=== PATIENT | female | born 1965 | race Hispanic/Latino ===

== ENCOUNTER 2017-06-16 12:32 | Emergency (ER) | payer BC, MEDICAID, OTHER ==
[2017-06-16 12:32] VITALS: BMI 26.6
[2017-06-16 12:52] VITALS: TEMP 98.7
[2017-06-16] MEDS ORDERED: Sodium Chloride 0.9% 1,000 ML IV SCH (13:00)
--- NOTE | 2017-06-16 13:01 | ED PDOC ---
Arrival/HPI - General Chief Complaint: Dizziness/Lightheaded Time Seen by Provider: 06/16/17 12:33 - History of Present Illness Narrative History of Present Illness (Text): 06/16/17 12:57 CC: dizziness and vomiting HPI: 51F presents with dizziness started 4pm yesterday. Patient admits to vomiting food yesterday and vomiting since then. Patient has not been able to keep down anuradha maurice, water. Patient states that dizziness is worse when sitting up from laying down, standing up from sitting. Patient feels that "everything is spinning" when she sits up and turns her head. Nothing makes it better. Moving makes it worse. PMH: thyroid ca (diagnosed December 2012, no f/u after thyroidectomy) PSH: thyroidectomy ([facility]) Family history: not known by patient allergies: NKDA 06/16/17 16:45 (Renita Romano) Past Medical History - Provider Review Nursing Documentation Reviewed: Yes - Infectious Disease Hx of Infectious Diseases: None - Tetanus Immunization Tetanus Immunization: Unknown - Past Medical History Past Medical History: No Previous - Cardiac Hx Pacemaker: No - Neurological Hx Paralysis: No - Hematological/Oncological Hx Blood Transfusions: No Hx Blood Transfusion Reaction: No Hx Cancer: Yes (thyroid CA) - Musculoskeletal/Rheumatological Hx Musculoskeletal Disorders: No - Psychiatric Hx Emotional Abuse: No Hx Physical Abuse: No Hx Substance Use: No - Past Surgical History Past Surgical History: No Previous - Surgical History Hx Thyroidectomy: Yes - Anesthesia Hx Anesthesia: Yes Hx Anesthesia Reactions: No Hx Malignant Hyperthermia: No - Suicidal Assessment Feels Threatened In Home Enviroment: No Family/Social History - Physician Review Nursing Documentation Reviewed: Yes Family/Social History: No Known Family HX Smoking Status: Never Smoked Hx Alcohol Use: No Hx Substance Use: No Hx Substance Use Treatment: No Allergies/Home Meds Allergies/Adverse Reactions: Allergies No Known Allergies Allergy (Verified 01/22/12 12:30) Home Medications: Home Meds Medication Instructions Recorded Confirmed Levothyroxine [Synthroid] 112 mcg PO DAILY 06/16/17 06/16/17 Review of Systems - Review of Systems Constitutional: Normal. absent: Fatigue, Weight Change, Fevers Eyes: Normal. absent: Vision Changes, Photophobia, Eye Pain ENT: Normal. absent: Hearing Changes, Tinnitus, Sore Throat, Rhinorrhea, Epistaxis, Sinus Congestion Respiratory: Normal. absent: SOB, Cough, Sputum Cardiovascular: Normal. absent: Chest Pain, Palpitations, Edema Gastrointestinal: Nausea, Vomiting. absent: Abdominal Pain, Stool Changes, Constipation, Diarrhea, Appetite Changes, Hematochezia, Hematemesis, Anorexia, Food Intolerance Skin: Normal. absent: Rash, Pruritis, Skin Lesions Neurological: Normal, Dizziness. absent: Headache, Focal Weakness, Gait Changes , Speech Changes, Facial Droop, Disequilibrium, Seizure Endocrine: Normal. absent: Diaphoresis, Polyuria, Polydipsia Hemo/Lymphatic: absent: Adenopathy, Easy Bleeding, Easy Bruising Psychiatric: absent: Anxiety, Depression, Suicidal Ideation Physical Exam Vital Signs Reviewed: Yes Temperature: Afebrile Blood Pressure: Normal Pulse: Regular Respiratory Rate: Normal Appearance: Positive for: Uncomfortable Mental Status: Positive for: Alert and Oriented X 3 - Systems Exam Head: Present: Atraumatic, Normocephalic Pupils: Present: PERRL Extroacular Muscles: Present: EOMI Conjunctiva: Present: Normal Ears: Present: Other (unable to access tympanic membrane due to cerumen impaction) Mouth: Present: Moist Mucous Membranes Pharnyx: Present: Normal. No: ERYTHEMA, EXUDATE Nose (External): Present: Atraumatic Nose (Internal): Present: Normal Inspection Neck: Present: Normal Range of Motion Respiratory/Chest: Present: Clear to Auscultation Cardiovascular: Present: Regular Rate and Rhythm, Normal S1, S2. No: Murmurs Abdomen: No: Tenderness, Distention, Normal Bowel Sounds, Peritoneal Signs, Rebound Upper Extremity: Present: Normal Inspection, Capillary Refill < 2s Lower Extremity: Present: Normal Inspection, Capillary Refill < 2 s Neurological: Present: GCS=15, CN II-XII Intact, Speech Normal, Motor Func Grossly Intact, Normal Sensory Function, Other (unable to access gait due to vomiting of phlegm. Will reassess after anti-emetic administration. ) Skin: Present: Warm, Dry, Normal Color. No: Rashes, Cold, Pale Lymphatic: No: Cervical Adenopathy, Axillary Adenopathy, Inguinal Adenopathy Psychiatric: Present: Alert, Oriented x 3, Normal Insight Vital Signs Temp Pulse Resp BP Pulse Ox 06/16/17 16:00 65 18 115/57 L 99 06/16/17 12:50 98.7 F 73 17 137/72 100 Medical Decision Making Re-evaluation Time: 15:15 Reassessment Condition: Re-examined, Improving,but remains with symptoms - Lab Interpretations I have reviewed the lab results: Yes - EKG Interpretation Interpreted by ED Physician: Yes Type: 12 lead EKG ED Course and Treatment: 06/16/17 13:01 EKG CBC CMP Meclizine 50mg PO Once Zofran 8mg IVP Once NS 100cc/hr 1 L EAR exam: b/l impacted cerumen gait exam, unable to assess at this time 06/16/17 16:46 Patient was able to eat well Patient ambulated well without nausea, vomiting. Patient is still slightly dizzy , but is stable for discharge home with meclizine (Eng,Renita) 06/16/17 13:46 Patient seen by resident and then evaluated by me. She is presenting with complaint of dizziness, described as the room spinning, worse with movement of head and worse with sitting up. +nystagmus on exam. Complaining of vomiting. Impacted ear wax b/l. Unable to ambulate due to dizziness, otherwise neurologically intact. Denies CP or SOB. EKG shows NSR at 66bpm with normal intervals and no st changes. CBC and CMP grossly normal. Presentation appears consistent with peripheral vertigo 06/16/17 17:12 CT head negative. On reevaluation patient is tolerating po and ambulating around the ED without issue. Will dc 06/16/17 17:13 (Solange Fitzgerald) - Lab Interpretations Lab Results: 06/16/17 13:15 06/16/17 13:15 Lab Results 06/16/17 15:41: Urine Color Yellow, Urine Appearance Clear, Urine pH 6.0, Ur Specific Lawler 1.025, Urine Protein Negative, Urine Glucose (UA) Negative, Urine Ketones Trace H, Urine Blood Negative, Urine Nitrate Negative, Urine Bilirubin Negative, Urine Urobilinogen 0.2, Ur Leukocyte Esterase Negative 06/16/17 13:15: Sodium 138, Potassium 4.0, Chloride 102, Carbon Dioxide 23, Anion Gap 17, BUN 16, Creatinine 0.8, Est GFR ( Amer) > 60, Est GFR (Non- Af Amer) > 60, Random Glucose 171 H, Calcium 9.8, Phosphorus 3.0, Magnesium 2.1 , Total Bilirubin 0.8, AST 29, ALT 25, Alkaline Phosphatase 70, Total Protein 8.6 H, Albumin 4.5, Globulin 4.1, Albumin/Globulin Ratio 1.1, Lipase 74 06/16/17 13:15: WBC 11.4 H, RBC 4.85, Hgb 13.5, Hct 39.9, MCV 82.3, MCH 27.8, MCHC 33.8, RDW 13.8, Plt Count 253, MPV 9.7, Gran % 87.6 H, Lymph % (Auto) 9.0 L , [place] % (Auto) 3.2, Eos % (Auto) 0.0 L, Baso % (Auto) 0.2, Gran # 10.01 H, Lymph # 1.0 L, [place] # 0.4, Eos # 0.0, Baso # 0.02 - RAD Interpretation Radiology Orders: 06/16/17 13:48 HEAD W/O CONTRAST [CT] Stat - Medication Orders Current Medication Orders: Discontinued Medications Sodium Chloride (Sodium Chloride 0.9%) 1,000 mls @ 100 mls/hr IV .Q10H TRACE Last Admin: 06/16/17 13:25 Dose: 100 mls/hr eMAR Start Stop Document 06/16/17 13:25 RG (Rec: 06/16/17 13:25 RG [id number]) Intravenous Solution Start Date 06/16/17 Start Time 13:25 Meclizine HCl (Antivert) 50 mg PO STAT STA Stop: 06/16/17 12:54 Last Admin: 06/16/17 13:55 Dose: 50 mg Metoclopramide HCl (Reglan) 10 mg IVP STAT STA Stop: 06/16/17 13:46 Last Admin: 06/16/17 14:25 Dose: 10 mg IVP Administration Document 06/16/17 14:25 RG (Rec: 06/16/17 14:25 RG [id number]) Charges for Administration # of IVP Administrations 1 Ondansetron HCl (Zofran Inj) 8 mg IVP STAT STA Stop: 06/16/17 13:21 Last Admin: 06/16/17 13:26 Dose: 8 mg IVP Administration Document 06/16/17 13:26 RG (Rec: 06/16/17 13:26 RG [id number]) Charges for Administration # of IVP Administrations 1 Prochlorperazine (Compazine Tab) 5 mg PO STAT STA Stop: 06/16/17 13:46 Last Admin: 06/16/17 15:02 Dose: 5 mg Disposition/Present on Arrival - Present on Arrival Any Indicators Present on Arrival: No History of DVT/PE: No History of Uncontrolled Diabetes: No Urinary Catheter: No History of Decub. Ulcer: No History Surgical Site Infection Following: None - Disposition Have Diagnosis and Disposition been Completed?: Yes Disposition Time: 16:47 Patient Plan: Discharge - Disposition Diagnosis: Vertigo, Dizziness Disposition: HOME/ ROUTINE Condition: FAIR Print Language: PERSIAN Additional Instructions: follow up with PMD for cerumen disimpaction and treatment for vertigo Return to Emergency department if dehydrated, dizzy, fainting, vomiting gets worse. Take medications as directed Prescriptions: Meclizine HCl [Motion Sickness II] 25 mg PO TID PRN #27 tablet PRN Reason: Dizziness Referrals: Mehreen Erickson MD [Primary Care Provider] - Follow up with primary Forms: [employer] (Estonian)
[2017-06-16 13:24] LABS: BASO # 0.02 K/mm3 (0.0-2.0); BASO % 0.2 % (0.0-3.0); GRAN # 10.01 (1.4-6.5); GRAN % 87.6 % (50.0-68.0); HEMOGLOBIN 13.5 g/dL (12.0-16.0); MEAN CELL VOLUME 82.3 fl (80.0-105.0); MEAN CORPUSCULAR HEMOGLOBIN 27.8 pg (25.0-35.0); MEAN CORPUSCULAR HGB CONC 33.8 g/dl (31.0-37.0); MEAN PLATELET VOLUME 9.7 fl (7.0-11.0); MONO # 0.4 (0.1-0.6); MONO % 3.2 % (1.0-6.0); RBC 4.85 10^6/uL (3.5-6.1); RED CELL DISTRIBUTION WIDTH 13.8 % (11.5-14.5); WHITE BLOOD COUNT 11.4 10^3/ul (4.5-11.0)
[2017-06-16 13:39] LABS: ALB/GLOB RATIO 1.1 (1.1-1.8); ALBUMIN 4.5 g/dL (3.0-4.8); ALT/SGPT 25 U/L (7-56); AST/SGOT 29 U/L (14-36); BLOOD UREA NITROGEN 16 mg/dL (7-21); CALCIUM 9.8 mg/dL (8.4-10.5); GFR AFRICAN-AMERICAN > 60; GFR NON-AFRICAN AMERICAN > 60; LIPASE 74 U/L (23-300); MAGNESIUM 2.1 mg/dL (1.7-2.2)
--- NOTE | 2017-06-16 15:07 | CT ---
PROCEDURE: CT HEAD WITHOUT CONTRAST. HISTORY: Dizziness COMPARISON: None available. TECHNIQUE: Axial computed tomography images were obtained through the head/brain without intravenous contrast. Radiation dose: Total exam DLP = 889.37 mGy-cm. This CT exam was performed using one or more of the following dose reduction techniques: Automated exposure control, adjustment of the mA and/or kV according to patient size, and/or use of iterative reconstruction technique. FINDINGS: HEMORRHAGE: No intracranial hemorrhage. BRAIN: Dixon-white matter differentiation is preserved. There is no mass, mass effect or abnormal extra-axial fluid collection. VENTRICLES: The ventricles are normal in size, shape and configuration. CALVARIUM: The skull base and calvarium are normal. PARANASAL SINUSES: Predominantly clear. MASTOID AIR CELLS: Predominantly clear. OTHER FINDINGS: None. IMPRESSION: No acute intracranial abnormality.
[2017-06-16 15:49] LABS: URINE BILIRUBIN NEGATIVE (NEGATIVE); URINE BLOOD NEGATIVE (NEGATIVE); URINE GLUCOSE (UA) NEGATIVE (NEGATIVE); URINE LEUKOCYTE ESTERASE NEGATIVE Leu/uL (NEGATIVE); URINE NITRATE NEGATIVE (NEGATIVE); URINE PROTEIN NEGATIVE mg/dL (<30 mg/dL); URINE UROBILINOGEN 0.2 E.U./dL (<1 E.U./dL)
[2017-06-16 15:55] LABS: URINE APPEARANCE CLEAR (CLEAR); URINE COLOR YELLOW (YELLOW)
[2017-06-16 17:02] VITALS: BP 115/57; PULSE 65; RESP 18; O2SAT 99
--- NOTE | 2017-06-17 10:06 | CARD ---
APPROVED REPORT EKG Measurement Heart [id number] <Conclusion> Normal sinus rhythm RVCD Baseline artifact present
== END 2017-06-16 16:53 | disposition home or self-care (01) ==
LOC: ED 12:32
DX: R42 Dizziness and giddiness (principal)
CPT/HCPCS: 70450; 80053; 81003; 83690; 83735; 84100; 85025; 93005; 96374; 96375; 99285; J2405; J2765; J7040; Q0164

== ENCOUNTER 2017-07-16 20:04 | Emergency (ER) | payer OTHER ==
[2017-07-16 20:05] VITALS: BMI 26.6
[2017-07-16] MEDS ORDERED: Sodium Chloride 0.9% 1,000 ML IV STA (20:27)
[2017-07-16 20:53] LABS: ARTERIAL BLOOD GAS HCO3 24.3 mmol/L (21-28); ARTERIAL BLOOD GAS HEMOGLOBIN 12.9 g/dL (11.7-17.4); ARTERIAL BLOOD GAS O2 CAPACITY 17.6 mL/dl (16-24); ARTERIAL BLOOD GAS O2 CONTENT 17.1 ML/dl (15-23); ARTERIAL BLOOD GAS O2 SAT 97.3 % (95-98); ARTERIAL BLOOD GAS PCO2 35 mm/Hg (35-45); ARTERIAL BLOOD GAS PH 7.45 (7.35-7.45); ARTERIAL BLOOD GAS TCO2 25.4 mmol.L (22-28)
[2017-07-16 20:56] LABS: HEMOGLOBIN 13.3 g/dL (12.0-16.0); MEAN CELL VOLUME 82.4 fl (80.0-105.0); MEAN CORPUSCULAR HEMOGLOBIN 27.9 pg (25.0-35.0); MEAN CORPUSCULAR HGB CONC 33.8 g/dl (31.0-37.0); MEAN PLATELET VOLUME 10.5 fl (7.0-11.0); RBC 4.77 10^6/uL (3.5-6.1); RED CELL DISTRIBUTION WIDTH 14.1 % (11.5-14.5); WHITE BLOOD COUNT 6.1 10^3/ul (4.5-11.0)
[2017-07-16 21:17] LABS: ALB/GLOB RATIO 1.1 (1.1-1.8); ALBUMIN 4.2 g/dL (3.0-4.8); ALT/SGPT 29 U/L (7-56); AST/SGOT 31 U/L (14-36); BLOOD UREA NITROGEN 17 mg/dL (7-21); GFR AFRICAN-AMERICAN > 60; GFR NON-AFRICAN AMERICAN > 60; LIPASE 41 U/L (23-300)
--- NOTE | 2017-07-16 21:24 | ED PDOC ---
Arrival/HPI - General Chief Complaint: Allergic Reaction Time Seen by Provider: 07/16/17 20:19 Historian: Patient - History of Present Illness Narrative History of Present Illness (Text): 07/16/17 20:23 A 51 year old female, whose past medical history includes thyroid CA, presents to the emergency department complaining of some nausea, few episodes of vomiting , and dizziness at times. Patient states she works at a [employer]. and CO detectors were on yesterday morning. Patient may have had possible CO exposure.Patient denies any abdominal pain, diarrhea, chest pain, shortness of breath. PMD: Dr. Mehreen Erickson Past Medical History - Provider Review Nursing Documentation Reviewed: Yes - Infectious Disease Hx of Infectious Diseases: None - Tetanus Immunization Tetanus Immunization: Unknown - Past Medical History Past Medical History: No Previous - Cardiac Hx Pacemaker: No - Neurological Hx Paralysis: No - Endocrine/Metabolic Other/Comment: Thyroid Cancer - Hematological/Oncological Hx Blood Transfusions: No Hx Blood Transfusion Reaction: No Hx Cancer: Yes (thyroid CA) - Musculoskeletal/Rheumatological Hx Musculoskeletal Disorders: No - Psychiatric Hx Emotional Abuse: No Hx Physical Abuse: No Hx Substance Use: No - Past Surgical History Past Surgical History: No Previous - Surgical History Hx Thyroidectomy: Yes - Anesthesia Hx Anesthesia: Yes Hx Anesthesia Reactions: No Hx Malignant Hyperthermia: No - Suicidal Assessment Feels Threatened In Home Enviroment: No Family/Social History - Physician Review Nursing Documentation Reviewed: Yes Family/Social History: No Known Family HX Smoking Status: Never Smoked Hx Alcohol Use: No Hx Substance Use: No Hx Substance Use Treatment: No Allergies/Home Meds Allergies/Adverse Reactions: Allergies No Known Allergies Allergy (Verified 01/22/12 12:30) Home Medications: Home Meds Medication Instructions Recorded Confirmed Levothyroxine [Synthroid] 112 mcg PO DAILY 06/16/17 07/16/17 Review of Systems - Physician Review All systems were reviewed & negative as marked: Yes - Review of Systems Constitutional: Fevers Respiratory: absent: SOB Cardiovascular: absent: Chest Pain Gastrointestinal: Nausea, Vomiting (some episodes). absent: Abdominal Pain, Diarrhea Neurological: Dizziness (at times) Physical Exam Vital Signs Reviewed: Yes Vital Signs Temp Pulse Resp BP Pulse Ox 07/16/17 22:13 98.7 F 80 16 121/72 99 07/16/17 20:09 99.3 F 94 H 18 167/87 H 98 Temperature: Afebrile Blood Pressure: Hypertensive Pulse: Regular Respiratory Rate: Normal Appearance: Positive for: Well-Appearing Pain Distress: None Mental Status: Positive for: Alert and Oriented X 3 - Systems Exam Head: Present: Atraumatic, Normocephalic Pupils: Present: PERRL Extroacular Muscles: Present: EOMI Conjunctiva: Present: Normal Mouth: Present: Moist Mucous Membranes Neck: Present: Normal Range of Motion Respiratory/Chest: Present: Clear to Auscultation, Good Air Exchange. No: Respiratory Distress, Accessory Muscle Use Cardiovascular: Present: Regular Rate and Rhythm, Normal S1, S2. No: Murmurs Abdomen: Present: Normal Bowel Sounds. No: Tenderness, Distention, Peritoneal Signs Back: Present: Normal Inspection Upper Extremity: Present: Normal Inspection. No: Cyanosis, Edema Lower Extremity: Present: Normal Inspection. No: Edema Neurological: Present: GCS=15, CN II-XII Intact, Speech Normal, Motor Func Grossly Intact, Normal Sensory Function Skin: Present: Warm, Dry, Normal Color. No: Rashes Psychiatric: Present: Alert, Oriented x 3, Normal Insight, Normal Concentration Medical Decision Making ED Course and Treatment: 07/16/17 20:27 Impression: 51 year old female with fever, nausea, some episodes of vomiting, and dizziness at times. Physical examination is overall normal. Plan: -- IV Fluids -- Zofran -- Reassess and disposition Prior Visits: Notes and results from previous visits were reviewed. Patient was last seen in the emergency department on 06/16/2017 for dizziness and vomiting. Patient was d /c home. Progress Notes: - Lab Interpretations Lab Results: 07/16/17 20:38 07/16/17 20:38 Lab Results 07/16/17 20:45: pCO2 35, pO2 70.0 L, HCO3 24.3, ABG pH 7.45, ABG Total CO2 25.4 , ABG O2 Saturation 97.3, ABG O2 Content 17.1, ABG Base Excess 0.7, ABG Hemoglobin 12.9, ABG Carboxyhemoglobin 2.0 H, POC ABG HHb (Measured) 2.6, ABG Methemoglobin 1.3, ABG O2 Capacity 17.6, Hgb O2 Saturation 94.2 L, FiO2 21.0 07/16/17 20:38: WBC 6.1 D, RBC 4.77, Hgb 13.3, Hct 39.3, MCV 82.4, MCH 27.9, MCHC 33.8, RDW 14.1, Plt Count 219, MPV 10.5 07/16/17 20:38: Sodium 140, Potassium 3.7, Chloride 103, Carbon Dioxide 26, Anion Gap 15, BUN 17, Creatinine 0.8, Est GFR ( Amer) > 60, Est GFR (Non- Af Amer) > 60, Random Glucose 108, Calcium 9.0, Total Bilirubin 0.8, AST 31, ALT 29, Alkaline Phosphatase 48, Total Protein 8.0, Albumin 4.2, Globulin 3.8, Albumin/Globulin Ratio 1.1, Lipase 41 - Medication Orders Current Medication Orders: Discontinued Medications Sodium Chloride (Sodium Chloride 0.9%) 1,000 mls @ 999 mls/hr IV .Q1H1M STA Stop: 07/16/17 21:27 Last Admin: 07/16/17 20:43 Dose: 999 mls/hr eMAR Start Stop Document 07/16/17 20:43 SS (Rec: 07/16/17 20:43 SS [id number]) Intravenous Solution Start Date 07/16/17 Start Time 20:43 End Date 07/16/17 End time 21:43 Total Infusion Time 60 Ondansetron HCl (Zofran Inj) 4 mg IVP ONCE ONE Stop: 07/16/17 20:28 Last Admin: 07/16/17 20:43 Dose: 4 mg IVP Administration Document 07/16/17 20:43 SS (Rec: 07/16/17 20:43 SS [id number]) Charges for Administration # of IVP Administrations 1 - Scribe Statement The provider has reviewed the documentation as recorded by the Isai Rockwell Provider Scribe Attestation: All medical record entries made by the Isai were at my direction and personally dictated by me. I have reviewed the chart and agree that the record accurately reflects my personal performance of the history, physical exam, medical decision making, and the department course for this patient. I have also personally directed, reviewed, and agree with the discharge instructions and disposition. Disposition/Present on Arrival - Present on Arrival Any Indicators Present on Arrival: No History of DVT/PE: No History of Uncontrolled Diabetes: No Urinary Catheter: No History of Decub. Ulcer: No History Surgical Site Infection Following: None - Disposition Have Diagnosis and Disposition been Completed?: Yes Diagnosis: Vomiting, Carbon monoxide exposure Disposition: HOME/ ROUTINE Disposition Time: 21:55 Patient Plan: Discharge Condition: GOOD Discharge Instructions (ExitCare): Carbon Monoxide (CO) Poisoning Additional Instructions: Take meds as prescribed/avoid exposure to possible carbon monoxide in the future /follow up with your doctor this week Prescriptions: Ondansetron [Zofran Odt] 4 mg PO Q6 PRN #12 odt PRN Reason: Nausea/Vomiting Referrals: Mehreen Erickson MD [Primary Care Provider] - Follow up with primary Forms: [employer] ([place]ian)
[2017-07-16 22:14] VITALS: BP 121/72; PULSE 80; RESP 16; TEMP 98.7; O2SAT 99
== END 2017-07-16 22:14 | disposition home or self-care (01) ==
LOC: ED 20:04
DX: R11.2 Nausea with vomiting, unspecified (principal); Z77.29 Contact with and (suspected) exposure to other hazardous substances
CPT/HCPCS: 80053; 82803; 83690; 85027; 96361; 96374; 99282; J2405; J7040

== ENCOUNTER 2017-09-23 16:55 | Emergency (ER) | payer OTHER ==
[2017-09-23 16:56] VITALS: BMI 26.6
[2017-09-23 17:42] VITALS: RESP 18; TEMP 98.2; O2SAT 99
[2017-09-23] MEDS ORDERED: Sodium Chloride 0.9% 1,000 ML IV STA (18:23)
[2017-09-23] MEDS ORDERED: Albuterol-Ipratrop 3 mg / 0.5 (3 ml) UD IH STA (18:26)
--- NOTE | 2017-09-23 18:29 | ED PDOC ---
Arrival/HPI - General Chief Complaint: Flu-like Symptoms Time Seen by Provider: 09/23/17 18:23 Historian: Patient - History of Present Illness Narrative History of Present Illness (Text): 09/23/17 18:26 This 51 yo female with pmh hypothyroidism, presents to this ED c/o cough, sore throat, myalgias, fever, and dizziness x 4 days. Patient stated she feels wheezing. Patient admits that everyone in the house is smoker. Patient denies other somatic complains. Time/Duration: < week Context: Home Past Medical History - Provider Review Nursing Documentation Reviewed: Yes - Infectious Disease Hx of Infectious Diseases: None - Tetanus Immunization Tetanus Immunization: Unknown - Past Medical History Past Medical History: No Previous - Cardiac Hx Pacemaker: No - Neurological Hx Paralysis: No - Endocrine/Metabolic Other/Comment: Thyroid Cancer - Hematological/Oncological Hx Blood Transfusions: No Hx Blood Transfusion Reaction: No Hx Cancer: Yes (thyroid CA) - Musculoskeletal/Rheumatological Hx Musculoskeletal Disorders: No - Psychiatric Hx Emotional Abuse: No Hx Physical Abuse: No Hx Substance Use: No - Past Surgical History Past Surgical History: No Previous - Surgical History Hx Thyroidectomy: Yes - Anesthesia Hx Anesthesia: Yes Hx Anesthesia Reactions: No Hx Malignant Hyperthermia: No - Suicidal Assessment Feels Threatened In Home Enviroment: No Family/Social History - Physician Review Nursing Documentation Reviewed: Yes Family/Social History: Other (noncontributory) Smoking Status: Never Smoked Hx Alcohol Use: No Hx Substance Use: No Hx Substance Use Treatment: No Allergies/Home Meds Allergies/Adverse Reactions: Allergies No Known Allergies Allergy (Verified 01/22/12 12:30) Home Medications: Home Meds Medication Instructions Recorded Confirmed Levothyroxine [Synthroid] 112 mcg PO DAILY 06/16/17 09/23/17 Review of Systems - Review of Systems Constitutional: Fevers. absent: Fatigue, Weight Change Eyes: Normal. absent: Vision Changes, Photophobia ENT: Sore Throat, Rhinorrhea, Sinus Congestion Respiratory: Cough, Wheezing. absent: SOB, Sputum Cardiovascular: Normal. absent: Chest Pain, Palpitations, Edema, Calf Pain, SCOTT , Orthopnea, Syncope Gastrointestinal: Normal. absent: Abdominal Pain, Nausea, Vomiting Genitourinary Female: Normal. absent: Dysuria, Frequency, Hematuria, Vaginal Bleeding, Vaginal Discharge Musculoskeletal: Myalgias Skin: Normal. absent: Rash Neurological: Dizziness. absent: Headache, Focal Weakness, Gait Changes, Speech Changes, Facial Droop, Disequilibrium, Seizure Endocrine: Normal Hemo/Lymphatic: Normal Psychiatric: Normal Physical Exam Vital Signs Temp Pulse Resp BP Pulse Ox 09/23/17 17:41 98.2 F 86 18 127/83 99 Temperature: Afebrile Blood Pressure: Normal Pulse: Regular Respiratory Rate: Normal Appearance: Positive for: Well-Appearing, Non-Toxic, Comfortable Pain Distress: None Mental Status: Positive for: Alert and Oriented X 3 - Systems Exam Head: Present: Atraumatic, Normocephalic, Other (mild maxillary sinus tenderness. no erythema or swelling) Pupils: Present: PERRL Extroacular Muscles: Present: EOMI Conjunctiva: Present: Normal Ears: Present: Normal, NORMAL TM, Normal Canal. No: Erythema, TM Bulging, Fluid , TM Perf Mouth: Present: Moist Mucous Membranes Pharnyx: Present: Normal. No: ERYTHEMA, EXUDATE, TONSILS ENLARGED Neck: Present: Normal Range of Motion, Trachea Midline. No: Meningeal Signs, MIDLINE TENDERNESS, Paraspinal Tenderness Respiratory/Chest: Present: Clear to Auscultation, Good Air Exchange. No: Respiratory Distress, Accessory Muscle Use Cardiovascular: Present: Regular Rate and Rhythm, Normal S1, S2. No: Murmurs Abdomen: No: Tenderness, Distention, Peritoneal Signs Back: Present: Normal Inspection. No: CVA Tenderness Upper Extremity: Present: Normal Inspection, Normal ROM. No: Cyanosis, Edema Lower Extremity: Present: Normal Inspection, Normal ROM. No: Edema Neurological: Present: GCS=15, CN II-XII Intact, Speech Normal, Motor Func Grossly Intact, Normal Sensory Function, Normal Cerebellar Funct, Gait Normal, Memory Normal, Other (Normal gait. No neuro focal deficits) Skin: Present: Warm, Dry, Normal Color. No: Rashes Psychiatric: Present: Alert, Oriented x 3, Normal Insight, Normal Concentration Medical Decision Making ED Course and Treatment: 09/23/17 18:32 Xanthelasma-like rash located b/l lower eyelids were noted. Patient stated she has been evaluated by PMD. She stated cholesterol has been normal. 09/23/17 20:35 Re-evaluation. Patient feels better. Discussed results and plan with patient who expresses understanding. All questions answered and there is agreement with the plan to discharge home with instructions. Patient stable for discharge. Return if symptoms persist or worsen. Patient was recommended to f/u PMD in 1-2 days, and to contact ENT for revaluation in 2-3 days. Take medication as instructed for bronchitis. Patient was recommended to return to emergency if symptoms worsen. Re-evaluation Time: 20:37 Reassessment Condition: Re-examined, Improved - Lab Interpretations Lab Results: 09/23/17 18:40 09/23/17 18:40 Lab Results 09/23/17 18:40: Sodium 143, Potassium 3.6, Chloride 102, Carbon Dioxide 30, Anion Gap 15, BUN 12, Creatinine 0.8, Est GFR ( Amer) > 60, Est GFR (Non- Af Amer) > 60, Random Glucose 96, Calcium 9.0, Total Bilirubin 0.5, AST 32, ALT 21, Alkaline Phosphatase 59, Total Protein 8.6 H, Albumin 4.5, Globulin 4.1, Albumin/Globulin Ratio 1.1 09/23/17 18:40: Urine Color Yellow, Urine Appearance Clear, Urine pH 7.0, Ur Specific [place] 1.020, Urine Protein Negative, Urine Glucose (UA) Negative, Urine Ketones Trace H, Urine Blood Negative, Urine Nitrate Negative, Urine Bilirubin Negative, Urine Urobilinogen 1.0 H, Ur Leukocyte Esterase Negative 09/23/17 18:40: Influenza Typ A,B (EIA) Negative for flu a/b 09/23/17 18:40: WBC 7.2, RBC 4.85, Hgb 13.3, Hct 39.6, MCV 81.6, MCH 27.4, MCHC 33.6, RDW 14.3, Plt Count 260, MPV 9.4, Gran % 66.6, Lymph % (Auto) 23.1, [place] % (Auto) 8.6 H, Eos % (Auto) 1.1 L, Baso % (Auto) 0.6, Gran # 4.83, Lymph # ( Auto) 1.7, [place] # (Auto) 0.6, Eos # (Auto) 0.1, Baso # (Auto) 0.04 I have reviewed the lab results: Yes Interpretation: No clinic. lab abnormalty - RAD Interpretation Narrative RAD Interpretations (Text): 09/23/17 20:37 Chest x-rays: No acute disease Radiology Orders: 09/23/17 18:26 CHEST TWO VIEWS (PA/LAT) [RAD] Stat - EKG Interpretation EKG Interpretation (Text): 09/23/17 19:40 NSR @ [address] changes. Normal interval Interpreted by ED Physician: Yes Type: 12 lead EKG Comparison: No previous EKG avail. - Medication Orders Current Medication Orders: Discontinued Medications Albuterol/Ipratropium (Duoneb 3 Mg/0.5 Mg (3 Ml) Ud) 3 ml IH STAT STA Stop: 09/23/17 18:27 Last Admin: 09/23/17 18:53 Dose: 3 ml Sodium Chloride (Sodium Chloride 0.9%) 1,000 mls @ 999 mls/hr IV .Q1H1M STA Stop: 09/23/17 19:23 Last Admin: 09/23/17 18:54 Dose: 999 mls/hr eMAR Start Stop Document 09/23/17 18:54 RD (Rec: 09/23/17 18:55 RD [id number]) Intravenous Solution Start Date 09/23/17 Start Time 18:54 End Date 09/23/17 End time 19:54 Total Infusion Time 60 Meclizine HCl (Antivert) 50 mg PO STAT STA Stop: 09/23/17 18:25 Last Admin: 09/23/17 18:54 Dose: 50 mg Disposition/Present on Arrival - Present on Arrival Any Indicators Present on Arrival: No History of DVT/PE: No History of Uncontrolled Diabetes: No Urinary Catheter: No History of Decub. Ulcer: No History Surgical Site Infection Following: None - Disposition Have Diagnosis and Disposition been Completed?: Yes Diagnosis: Acute bronchitis Disposition: HOME/ ROUTINE Disposition Time: 20:42 Patient Plan: Discharge Condition: GOOD Discharge Instructions (ExitCare): Acute Bronchitis, Adult (DC) Additional Instructions: Call private doctor for follow up visit in 1-2 days. Take Medication as instructed with food. Return to emergency if symptoms returns or worsen. Do nto drive or operate machinery if you take Phenergan with Codeine for at least 12 hours, since it could make you drowsy. Prescriptions: Albuterol Sulfate [Ventolin Hfa] 2 puff IH Q6H PRN #1 packet PRN Reason: Wheezing Azithromycin [Z-Darek] 250 mg PO DAILY #6 tab Promethazine/Codeine [Codeine/Promethazine 10 MG/5 Ml-6.25 MG/5 Ml] 5 ml PO Q4H PRN #120 ml PRN Reason: Cough And Congestion Referrals: Mehreen Erickson MD [Primary Care Provider] - Follow up with primary Forms: [employer] (Korean)
[2017-09-23 19:04] LABS: URINE BILIRUBIN NEGATIVE (NEGATIVE); URINE BLOOD NEGATIVE (NEGATIVE); URINE GLUCOSE (UA) NEGATIVE (NEGATIVE); URINE LEUKOCYTE ESTERASE NEGATIVE Leu/uL (NEGATIVE); URINE PROTEIN NEGATIVE mg/dL (<30 mg/dL)
[2017-09-23 19:06] LABS: BASO # 0.04 K/mm3 (0.0-2.0); BASO % 0.6 % (0.0-3.0); EOS # 0.1 (0.0-0.7); EOS % 1.1 % (1.5-5.0); GRAN # 4.83 (1.4-6.5); GRAN % 66.6 % (50.0-68.0); HEMOGLOBIN 13.3 g/dL (12.0-16.0); LYMPH # 1.7 (1.2-3.4); LYMPH % 23.1 % (22.0-35.0); MEAN CELL VOLUME 81.6 fl (80.0-105.0); MEAN CORPUSCULAR HEMOGLOBIN 27.4 pg (25.0-35.0); MEAN CORPUSCULAR HGB CONC 33.6 g/dl (31.0-37.0); MEAN PLATELET VOLUME 9.4 fl (7.0-11.0); MONO # 0.6 (0.1-0.6); MONO % 8.6 % (1.0-6.0); RBC 4.85 10^6/uL (3.5-6.1); RED CELL DISTRIBUTION WIDTH 14.3 % (11.5-14.5); WHITE BLOOD COUNT 7.2 10^3/ul (4.5-11.0)
[2017-09-23 19:07] LABS: URINE APPEARANCE CLEAR (CLEAR); URINE COLOR YELLOW (YELLOW)
[2017-09-23 19:22] LABS: ALB/GLOB RATIO 1.1 (1.1-1.8); ALBUMIN 4.5 g/dL (3.0-4.8); ALT/SGPT 21 U/L (7-56); AST/SGOT 32 U/L (14-36); BLOOD UREA NITROGEN 12 mg/dL (7-21); GFR AFRICAN-AMERICAN > 60; GFR NON-AFRICAN AMERICAN > 60
[2017-09-23 20:53] VITALS: BP 135/82; PULSE 84
--- NOTE | 2017-09-24 09:53 | RAD ---
HISTORY: cough COMPARISON: No prior. TECHNIQUE: Chest PA and lateral FINDINGS: LUNGS: No active pulmonary disease. PLEURA: No significant pleural effusion identified. No pneumothorax apparent. CARDIOVASCULAR: Normal. OSSEOUS STRUCTURES: No significant abnormalities. VISUALIZED UPPER ABDOMEN: Normal. OTHER FINDINGS: None. IMPRESSION: No active disease.
--- NOTE | 2017-09-24 11:20 | CARD ---
APPROVED REPORT EKG Measurement Heart [id number] <Conclusion> Normal sinus rhythm Normal ECG
== END 2017-09-23 20:57 | disposition home or self-care (01) ==
LOC: ED 16:55
DX: J20.9 Acute bronchitis, unspecified (principal); E03.9 Hypothyroidism, unspecified
CPT/HCPCS: 71046; 80053; 81003; 85025; 87804; 93005; 96360; 99284; J7040

== ENCOUNTER 2018-05-12 23:05 | Emergency (ER) | payer OTHER ==
[2018-05-12 23:05] VITALS: BMI 26.6
[2018-05-12 23:46] VITALS: TEMP 97.7
--- NOTE | 2018-05-13 02:29 | ED PDOC ---
Arrival/HPI - General Chief Complaint: Upper Extremity Problem/Injury Time Seen by Provider: 05/12/18 23:45 Historian: Patient - History of Present Illness Narrative History of Present Illness (Text): 52 y/o female with PMH of thyroid cancer presents to the ED for evaluation of left elbow pain s/p mechanical fall 1 hour [employer]. 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 Denies head strike or LOC. Currently c/o left elbow pain. Has not taken any medication for pain. Denies lacerations, abrasions, numbness, paresthesias, or pain elsewhere. Past Medical History - Provider Review Nursing Documentation Reviewed: Yes - Infectious Disease Hx of Infectious Diseases: None - Tetanus Immunization Tetanus Immunization: Unknown - Past Medical History Past Medical History: No Previous - Cardiac Hx Pacemaker: No - Neurological Hx Paralysis: No - Endocrine/Metabolic Other/Comment: Thyroid Cancer - Hematological/Oncological Hx Blood Transfusions: No Hx Blood Transfusion Reaction: No Hx Cancer: Yes (thyroid CA) - Musculoskeletal/Rheumatological Hx Musculoskeletal Disorders: No - Psychiatric Hx Emotional Abuse: No Hx Physical Abuse: No Hx Substance Use: No - Past Surgical History Past Surgical History: No Previous - Surgical History Hx Thyroidectomy: Yes - Anesthesia Hx Anesthesia: Yes Hx Anesthesia Reactions: No Hx Malignant Hyperthermia: No - Suicidal Assessment Feels Threatened In Home Enviroment: No Family/Social History - Physician Review Nursing Documentation Reviewed: Yes Family/Social History: No Known Family HX Smoking Status: Never Smoked Hx Alcohol Use: No Hx Substance Use: No Hx Substance Use Treatment: No Allergies/Home Meds Allergies/Adverse Reactions: Allergies No Known Allergies Allergy (Verified 05/12/18 23:46) Home Medications: Home Meds Medication Instructions Recorded Confirmed Levothyroxine [Synthroid] 112 mcg PO DAILY 06/16/17 05/12/18 Review of Systems - Physician Review All systems were reviewed & negative as marked: Yes - Review of Systems Constitutional: Normal. absent: Fatigue Eyes: Normal. absent: Vision Changes, Photophobia ENT: Normal. absent: Sinus Congestion Respiratory: Normal. absent: SOB, Cough Cardiovascular: Normal. absent: Chest Pain, Palpitations, Syncope Gastrointestinal: Normal. absent: Abdominal Pain, Nausea, Vomiting Genitourinary Female: Normal. absent: Dysuria Musculoskeletal: Arthralgias (left elbow). absent: Back Pain, Neck Pain Skin: Normal. absent: Rash Neurological: Normal. absent: Headache, Dizziness, Gait Changes Endocrine: Normal Hemo/Lymphatic: Normal Psychiatric: Normal Physical Exam Vital Signs Reviewed: Yes Vital Signs Temp Pulse Resp BP Pulse Ox 05/12/18 23:42 97.7 F 87 20 132/87 100 05/12/18 23:39 98.4 F 78 18 132/87 100 Temperature: Afebrile Blood Pressure: Normal Pulse: Regular Respiratory Rate: Normal Appearance: Positive for: Well-Appearing, Non-Toxic, Comfortable Pain Distress: None Mental Status: Positive for: Alert and Oriented X 3 - Systems Exam Head: Present: Atraumatic, Normocephalic. No: Tenderness, Contusion, Swelling, Ecchymosis, Abrasion, Laceration Pupils: Present: PERRL Extroacular Muscles: Present: EOMI Conjunctiva: Present: Normal Ears: Present: Normal, NORMAL TM Mouth: Present: Moist Mucous Membranes Pharnyx: Present: Normal Nose (External): Present: Atraumatic Nose (Internal): Present: Normal Inspection Neck: Present: Normal Range of Motion. No: Meningeal Signs, MIDLINE TENDERNESS, Paraspinal Tenderness Respiratory/Chest: Present: Clear to Auscultation, Good Air Exchange. No: Respiratory Distress, Accessory Muscle Use Cardiovascular: Present: Regular Rate and Rhythm, Normal S1, S2, Peripheal Pulses Present. No: Murmurs Abdomen: Present: Normal Bowel Sounds. No: Tenderness, Distention, Peritoneal Signs Back: Present: Normal Inspection. No: Midline Tenderness Upper Extremity: Present: Normal Inspection, NORMAL PULSES, Tenderness (posterior elbow), Neurovascularly Intact, Capillary Refill < 2s. No: Cyanosis, Edema, Normal ROM (decreased at shoulder and elbow secondary to pain; full passive ROM), Swelling, Erythema, Temperature Abnormalties, Deformity Lower Extremity: Present: Normal Inspection, NORMAL PULSES, Normal ROM, Neurovascularly Intact, Capillary Refill < 2 s. No: Edema, Temperature Abnormalties Neurological: Present: GCS=15, CN II-XII Intact, Speech Normal, Motor Func Grossly Intact, Normal Sensory Function, Gait Normal Skin: Present: Warm, Dry, Normal Color. No: Rashes Lymphatic: No: Cervical Adenopathy Psychiatric: Present: Alert, Oriented x 3, Normal Insight, Normal Concentration, Normal Affect, Normal Mood Medical Decision Making ED Course and Treatment: Initial Plan: * XR left elbow * XR left shoulder * Toradol Xrays read by Dr. Lu as negative for acute fracture or dislocation. Reports decreased pain after medication. Patient splinted in posterior long arm splint with sling by electron beam photo mask technician. Neurovascular exam remains unchanged post-splint. Patient tolerated well without complication. Advised to followup with orthopedics within 2 days. Diagnostic testing results and plan of care discussed with patient, and strict instructions given regarding prescriptions, importance of follow up, and signs to return to Emergency Department, to include worsening pain, numbness, tingling, or any other new/worsening symptoms. Patient verbalizes understanding of discussion. Patient A&Ox3, ambulating with steady gait, stable for discharge home. - RAD Interpretation Radiology Orders: 05/13/18 00:24 ELBOW LEFT 3 VIEWS ROUTINE [RAD] Stat SHOULDER LEFT [RAD] Stat - Medication Orders Current Medication Orders: Discontinued Medications Ketorolac Tromethamine (Toradol) 60 mg IM STAT STA Stop: 05/13/18 00:45 Disposition/Present on Arrival - Present on Arrival Any Indicators Present on Arrival: No History of DVT/PE: No History of Uncontrolled Diabetes: No Urinary Catheter: No History of Decub. Ulcer: No History Surgical Site Infection Following: None - Disposition Have Diagnosis and Disposition been Completed?: Yes Diagnosis: Elbow injury Disposition: HOME/ ROUTINE Disposition Time: 02:00 Patient Plan: Discharge Condition: IMPROVED Discharge Instructions (ExitCare): Elbow Sprain (DC) Additional Instructions: Keep arm in sling until followup Rest, elevate, ice extremity Ibuprofen/tylenol for pain Followup with orthopedics within 2 days Return to ER with any new/worsening symptoms Referrals: Rudi Cardona III, MD [Medical Doctor] - Follow up with primary Forms: Appear Here (Irish), WORK NOTE
[2018-05-13 03:07] VITALS: RESP 18
[2018-05-13 03:08] VITALS: BP 127/73; PULSE 77; O2SAT 100
--- NOTE | 2018-05-13 09:24 | RAD ---
PROCEDURE: Radiographs of the Left Shoulder, two views HISTORY: trauma r/o fracture COMPARISON: No prior. FINDINGS: BONES: No acute displaced fracture. The distal clavicle and underlying ribs appear intact. JOINTS: No acute dislocation. SOFT TISSUES: Soft tissues appear unremarkable. No evidence of radiopaque foreign body. IMPRESSION: No acute displaced fracture or dislocation evident. If symptoms persist or if there is continued clinical concern, x-ray follow-up in 7-10 days should be considered.
--- NOTE | 2018-05-13 12:16 | RAD ---
PROCEDURE: Radiographs of the left elbow. HISTORY: trauma r/o fracture COMPARISON: No prior. FINDINGS: BONES: Suspect osteophyte formation involving the olecranon. No acute displaced fracture. JOINTS: No dislocation. SOFT TISSUES: Unremarkable. No evidence of radiopaque foreign body. JOINT EFFUSION: No significant joint effusion. OTHER FINDINGS: None IMPRESSION: Suspect osteophyte formation at the olecranon. No acute displaced fracture, dislocation, or significant joint effusion identified. If high clinical index of suspicion, suggest cross-sectional imaging. Otherwise, if symptoms persist, or if there is continued clinical concern, x-ray follow-up in 7-10 days should be considered.
== END 2018-05-13 02:45 | disposition home or self-care (01) ==
LOC: ED 23:05
DX: S59.902A Unspecified injury of left elbow, initial encounter (principal); W01.0XXA Fall on same level from slipping, tripping and stumbling without subsequent striking against object, initial encounter; Y92.480 Sidewalk as the place of occurrence of the external cause; Y99.0 Civilian activity done for income or pay